=== PATIENT | male | born 1935 | race Caucasian/White ===

== ENCOUNTER 2021-12-11 18:04 | Emergency (ER) | payer MEDICARE, SELFPAY ==
[2021-12-11 18:23] VITALS: PULSE 67; RESP 15; O2SAT 100
[2021-12-11 18:33] LABS: Glucose Point of Care 176 mg/dl (65-105)
[2021-12-11 18:39] LABS: Hematocrit 37.6 % (42.0-52.0); Hemoglobin 11.6 g/dL (14.0-18.0); Mean Corpuscular HGB Conc 30.9 g/dl (32-36); Mean Corpuscular Hemoglobin 30.8 pg (26-34); Mean Corpuscular Volume 99.7 fl (80-100); Mean Platelet Volume 10.1 fl (7.4-10.4); Platelet Count Result 261 k/mm3 (150-375); Red Blood Count 3.77 M/mm3 (4.6-6.20); Red Cell Distribution Width 15.8 % (11.5-14.5); White Blood Count 9.2 K/mm3 (4.5-10.0)
--- NOTE | 2021-12-11 18:47 | ECG_ITS ---
Measurements Intervals [place] Rate: 60 P: 163 ME: 235 QRS: -9 QRSD: 146 T: -10 QT: 472 QTc: 472 Interpretive Statements ELECTRONIC ATRIAL PACEMAKER WITH INHIBITION LEFT BUNDLE BRANCH BLOCK BASELINE ARTIFACT- II, III, AVR, AVF, V2-V6 ABNORMAL ECG Electronically Signed On 12-12-2021 6:44:28 [facility]ELER by Dima Wheatley D.O.
[2021-12-11 18:51] LABS: Alanine Aminotransferase 27 U/L (4-50); Albumin Level 3.5 g/dL (3.5-5.1); Alkaline Phosphatase 97 U/L (38-126); Anion Gap 5 mmol/L (8-16); Aspartate Amino Transferase 68 U/L (17-59); Bilirubin,Total 0.5 mg/dL (0.2-1.3); Blood Urea Nitrogen 49 mg/dL (9-20); Calcium 10.6 mg/dL (8.4-10.2); Carbon Dioxide 26 mmol/L (22-30); Chloride 106 mmol/L (98-107); Estimated CRCL calculation 31 ml/min; Estimated Glomerular Filt Rate 36; Glucose 281 mg/dL (65-110); Sodium 137 mmol/L (137-145)
--- NOTE | 2021-12-11 19:06 | ED.AMS ---
HPI - Altered Mental Status General Chief Complaint: Altered Mental Status <Freda Callejas PA-C - Last Filed: 12/11/21 21:04> Stated Complaint: AMS <YAS Alford Last Filed: 12/11/21 21:04> Time Seen by Provider: 12/11/21 18:47 <Freda Callejas PA-C - Last Filed: 12/11/21 21:04> Source: patient and EMS <Freda Callejas PA-C - Last Filed: 12/11/21 21:04> Mode of arrival: EMS <YAS Alford Last Filed: 12/11/21 21:04> Limitations: dementia <YAS Alford Last Filed: 12/11/21 21:04> History of Present Illness HPI narrative: This is a 86 year old male that presents to the ER for altered mental status. Patient was hospitalized at [facility] in [place] for left femur fracture s/p IM nailing. Patient was being transported to [facility]. On his transport the EMS crew noted that the patient appeared to be confused and brought him here for evaluation. Patient currently has no complaints. Through looking at his discharge papers, patient has history of dementia and is on Donepezil. We called [facility] who confirmed that patient's baseline is A&O x 1 which he is currently. He follows all commands. No focal deficits noted. <Freda Callejas PA-C - Last Filed: 12/11/21 21:04> Related Data Allergies/Adverse Reactions: Allergies Allergy/AdvReac Type Severity Reaction Status Date / Time adhesive Allergy Rash Verified 12/11/21 20:36 <YAS Alford Last Filed: 12/11/21 21:04> Review of Systems Review of Systems: CONSTITUTIONAL: Denies fever CARDIOVASCULAR: Denies chest pain RESPIRATORY: Denies dyspnea. GASTROINTESTINAL: Denies abdominal pain, nausea, vomiting <YAS Alford Last Filed: 12/11/21 21:04> All systems reviewed & are unremarkable except as noted in HPI and below <Freda Callejas PA-C - Last Filed: 12/11/21 21:04> [facility] Past Medical History Medical History: Medical History (Updated 12/11/21 @ 20:28 by Freda Callejas PA-C) History of atrial fibrillation History of dementia History of diabetes mellitus History of gastroesophageal reflux (GERD) <Freda Callejas PA-C - Last Filed: 12/11/21 21:04> Social History Social History: Social History (Updated 12/11/21 @ 19:16 by Freda Callejas PA-C) Smoking status: Never smoker <Freda Callejas PA-C - Last Filed: 12/11/21 21:04> Exam Narrative: GENERAL: Elderly, well-nourished, and in no acute distress. HEAD: Normocephalic, atraumatic. EYES: PERRLA and EOMI. ENT: Nares clear, no rhinorrhea or epistaxis. Mucous membranes moist. Oropharynx without tonsillar hypertrophy exudate or other lesions. Bilateral TMs pearly christensen non-bulging NECK: Supple. No adenopathy or masses. CHEST: Clear to auscultation. No respiratory distress. No wheezes rales or rhonchi HEART: Regular rate and rhythm. No murmur heard. Normal peripheral pulses. ABDOMEN: Soft, nontender, nondistended, normal active bowel sounds. EXTREMITIES: Normal range of motion. No edema. Strength equal in bilateral upper and lower extremities (5/5). Dressing to the left hip that is clean, dry and intact; without surrounding erythema SKIN: Warm, dry, no rash. NEURO: No focal deficits. Alert and oriented x1. PSYCH: Normal mood and affect <Freda Callejas PA-C - Last Filed: 12/11/21 21:04> Course Vital Signs Vital signs: Vital Signs Pulse Rate 67 12/11/21 18:23 Respiratory Rate 15 12/11/21 18:23 Pulse Oximetry 100 12/11/21 18:23 Temperature 98 F 12/11/21 20:54 Pulse Rate 75 12/11/21 20:54 Respiratory Rate 16 12/11/21 20:54 Blood Pressure 172/86 H 12/11/21 20:54 Pulse Oximetry 100 12/11/21 18:23 <Freda Callejas PA-C - Last Filed: 12/11/21 21:04> MDM - Altered Mental Status MDM Narrative Medical decision making narrative: Patient presents to the ER via EMS for possible altered mental status. Patient was being discharged from the
[2021-12-11 19:18] LABS: Eosinophils Absolute Manual 0.18 K/mm3 (0.02-0.5); Eosinophils Percent Manual 2 % (0-4); Lymphocytes Percent Manual 24 % (18-44); Monocytes Absolute Manual 0.36 K/mm3 (0.1-0.90); Monocytes Percent Manual 4 % (3-9); Neutrophils Percent Manual 66 % (46-73); Total Cells Counted 100
[2021-12-11 19:19] LABS: Metamyelocytes Percent 3 %; Myelocytes Percent 1 %; Platelet Estimate Adequate (Adequate)
[2021-12-11 19:20] LABS: Anisocytosis 1+ (NORMAL); Atypical Lymphocytes Present; Smudge Cells FEW
[2021-12-11 19:23] LABS: Add Urine Microscopic? YES; Appearance Urine Cloudy (Clear); Bacteria Urine Trace /hpf; Bilirubin Urine Negative (Negative); Blood Urine 2+ (Negative); Color Urine Yellow (Yellow); Glucose Urine UA 3+ mg/dL (Negative); Ketones Urine Negative (Negative); Leukocyte Esterase Ur 3+ LEU/UL (Negative); Mucus Urine Rare /lpf; Nitrate Urine Negative (Negative); Protein Urine 1+ mg/dL (Negative); Specific Grav Ur 1.012 (1.001-1.035); Urobilinogen Urine Negative mg/dL (<2.0); WBC Urine >75 /hpf
--- NOTE | 2021-12-11 19:29 | PC.NURSE ---
oriented to person only, assisted up in bed
[2021-12-11 19:44] LABS: INR 1.1; Prothrombin Time 13.3 Seconds (11.1-14.7)
[2021-12-11 19:45] LABS: Partial Thromboplastin Time 30.9 SECONDS (22.3-36.8)
[2021-12-11 20:54] VITALS: BP 172/86; PULSE 75; RESP 16; TEMP 36.6
--- NOTE | 2021-12-11 22:16 | PC.NURSE ---
made contact with [facility] to transfer pt to [facility] [place]
[2021-12-11] MEDS: CEFDINIR 300 MG CAPSULE PO (22:26)
--- NOTE | 2021-12-11 22:28 | PC.NURSE ---
[id number] called report to jaun rodarte at [facility], jaun rn reports she will call kaylee the POA and update her
[2021-12-11 23:06] LABS: Glucose Point of Care 239 mg/dl (65-105)
--- NOTE | 2021-12-12 00:35 | PC.NURSE ---
made contact with dsouza for updated eta new eta is [id number]
--- NOTE | 2021-12-12 01:12 | PC.NURSE ---
pt sleeping waiting transport
--- NOTE | 2021-12-12 01:37 | PC.NURSE ---
updated eta [id number]
--- NOTE | 2021-12-12 02:10 | PC.NURSE ---
wakes to voice resp even unlabored waiting transport
[2021-12-12 02:11] VITALS: BP 186/86; PULSE 66; RESP 18; O2SAT 98
[2021-12-12] MEDS: hydrALAZINE HCL 20 MG/ML VIAL 10 MG IV PUSH (02:32)
--- NOTE | 2021-12-12 02:37 | PC.NURSE ---
ds[facility] has arrived
== END 2021-12-12 03:07 ==
PROVIDERS: Physician Assistant; Emergency Provider General Practice
DX: F03.90 Unspecified dementia, unspecified severity, without behavioral disturbance, psychotic disturbance, mood disturbance, and anxiety (principal); N30.00 Acute cystitis without hematuria; I48.91 Unspecified atrial fibrillation; E11.9 Type 2 diabetes mellitus without complications; K21.9 Gastro-esophageal reflux disease without esophagitis; Z95.0 Presence of cardiac pacemaker; I44.7 Left bundle-branch block, unspecified
CPT/HCPCS: 36415; 80053; 81001; 82948; 85025; 85610; 85730; 87086; 93005; 96374; 99284; A9270; J0360